=== PATIENT | female | born 1945 | race African-American/Black ===

== ENCOUNTER 2016-06-04 11:00 | Outpatient (RCR) | payer OTHER | END 2016-06-10 | disposition home or self-care (01) | LOC: PTY 11:00 | PROVIDERS: ATTEND Internal Medicine | DX: S16.1XXD Strain of muscle, fascia and tendon at neck level, subsequent encounter (principal); Z91.018 Allergy to other foods ==

== ENCOUNTER 2016-06-17 09:00 | Outpatient (RCR) | payer OTHER | END 2016-07-08 | disposition home or self-care (01) | LOC: PTY 09:00 | PROVIDERS: ATTEND Internal Medicine | DX: S16.1XXD Strain of muscle, fascia and tendon at neck level, subsequent encounter (principal) ==